=== PATIENT | female | born 1980 | race Caucasian/White ===

== ENCOUNTER 2025-07-30 13:17 | Emergency (ER) | payer SELFPAY ==
[2025-07-30 13:18] VITALS: BMI 56.5
[2025-07-30 13:49] VITALS: BP 206/139; BP 232/135; PULSE 100; RESP 18; TEMP 36.9; O2SAT 100
--- NOTE | 2025-07-30 14:24 | EDNOTE_ITS ---
<Statement entered by Mitra Malone MD - 07/30/25 17:38> As co-signing physician, I was present and available for consult prn. I concur with the plan and care as documented by the midlevel provider. ED Extremity Problem RME/HPI General Chief complaint: Extremity Problem,Nontraumatic Stated complaint: RLE SWELLING X2 WEEKS Time Seen by Provider: 07/30/25 13:34 Arrival date/time: 07/30/25 13:17 44-year-old female patient with no past medical history except for morbid obesity, came in for evaluation regarding redness to the lateral aspect of the lower leg. Patient told me that he got bitten by a spider, that was 2 weeks ago, he just ignored it until he noticed to become red. There is no necrosis noted. Patient denies any lower leg pain or tenderness. Also complained of mild swelling. Patient is currently not taking any blood pressure medication, has been monitoring her blood pressure, told me that every time he comes to the emergency room blood pressure usually is elevated. She told me that was checked by her PCP and her blood pressure was normal few months ago. Denies any chest pain denies any shortness of breath denies any other complaints. Related Data Previous Rx's ?Medication ?Instructions ?Recorded clindamycin HCl 300 mg capsule 300 mg PO TID #30 caps 07/30/25 (Cleocin HCl) ibuprofen 800 mg tablet 800 mg PO TID PRN pain #30 t abs 07/30/25 Allergies Allergy/AdvReac Type Severity Reaction Status Date / Time No Known Allergies Allergy Verified 07/30/25 13:20 Review of Systems Review of Systems Narrative Review of Systems: Review of system reviewed and within normal limits except mentioned in HPI ED Exam Narrative Physical exam: VITAL SIGNS: Reviewed. GENERAL APPEARANCE: Alert and interactive, follows commands, no acute distress, HEAD AND FACE: Non-traumatic. ENT: PERRL, pink conjunctivitis, eyelid no trauma, Mucous membrane moist. NECK: Supple, nontender, no nuchal rigidity. CHEST: No tenderness, no crepitus, no paradoxical movement, no retractions. LUNGS: Clear, well ventilated, symmetric, no rales, no wheezing, no ronchi, no stridor, good breath sounds bilaterally. HEART: Regular rate, regular rhythm, no murmur, no gallops. ABDOMEN: Soft, positive bowel sounds, nondistended, no guarding, nontender, no rebound, no masses, RECTAL: Deferred. GENITAL: Deferred. NEUROLOGICAL: Gross motor function intact sensory function intact, Appropriate for age. MUSCULOSKELETAL: low back nontender, full range of motion. EXTREMITIES: + Redness noted to the lateral aspect of the right lower leg, no necrosis noted nontender, full range of motion. Mild swelling noted, distal neurovascular status intact SKIN: Color pink, dry, no rash, no lacerations, no abrasions, no contusions. LYMPHATICS: Deferred. Course Quality Measures none Orders Category Date Time Status Furosemide [Lasix] Med 07/30/25 14:23 Discontinued 20 mg PO X1 ONE cefTRIAXone [Rocephin] 1,000 mg Med 07/30/25 14:24 Discontinued Lidocaine 1% Pf Vial 5ml [Xylocaine 1% Pf 5 ml] 2.1 ml IM X1 cloNIDine HCL [Catapres] Med 07/30/25 14:23 Discontinued 0.2 mg PO X1 ONE Vital Signs Vital signs: Vital Signs Temperature 98.4 F 07/30/25 13:49 Pulse Rate 100 07/30/25 13:49 Respiratory Rate 18 07/30/25 13:49 Blood Pressure 206/139 H 07/30/25 13:49 Pulse Oximetry (%) 100 07/30/25 13:49 Oxygen Delivery Method Room Air 07/30/25 13:49 Extremity Problem MDM Narrative MDM Narrative:: 44-year-old female patient with no past medical history except for morbid obesity, came in for evaluation regarding redness to the lateral aspect of the lower leg. Patient told me that he got bitten by a spider, that was 2 weeks ago, he just ignored it until he noticed to become red. There is no necrosis noted. Patient denies any lower leg pain or tenderness. Also complained of mild swelling. Patient is currently not taking any blood pressure medication, has been monitoring her blood pressure, told me that every time he comes to the emergency room blood pressure usually is elevated. She told me that was checked by her PCP and her blood pressure was normal few months ago. Denies any chest pain denies any shortness of breath denies any other complaints. Imaging is not needed at this time patient's leg showed mild cellulitis, I did not notice any sign of DVT or abscess formation. Patient was offered a prescription of blood pressure medication however patient told me that she never had a blood pressure problem and will follow-up with her PCP in few days and mention about blood pressure issues. Patient was given ceftriaxone IM, clonidine, and Lasix. Patient eloped from the emergency room Patient data External records reviewed:: None Clinical information provided by:: patient Social determinants that could affect healthcare access:: none Patient has the following chronic illnesses:: Morbid obesity How is presenting disease/condition affected by chronic disease/condition?: exacerbated by Evaluation data The following diagnostics were reviewed and interpreted by me:: other (specify) (None) Lab and/or radiology exams considered but not ordered:: None Interpretation Summary: None Medications / Prescriptions Medications or Prescriptions considered but not ordered:: None Medication administrations:: Medication Administration History Discontinued Medications Clonidine (Clonidine Hcl 0.1 Mg Tablet) 0.2 mg PO X1 ONE Stop: 07/30/25 14:24 Last Admin: 07/30/25 14:45 Dose: 0.2 mg Documented By: Ceftriaxone Sodium 1,000 mg/ (Lidocaine HCl 2.1 ml) 0 mg IM X1 ONE Stop: 07/30/25 14:25 Last Admin: 07/30/25 14:48 Dose: 1,000 mg Documented By: Furosemide (Furosemide 40 Mg Tablet) 20 mg PO X1 ONE Stop: 07/30/25 14:24 Last Admin: 07/30/25 14:45 Dose: 20 mg Documented By: Lasix, ceftriaxone and clonidine Consultations Consultation(s) initiated? (list below): No Diagnosis Extremity Problem Differential Diagnosis: cellulitis and lower extremity edema Most likely diagnosis given after review of the tests above:: Leg cellulitis, elevated blood pressure with no diagnosis of hypertension Admission Indicated Admission indicated?: not indicated Admission Request Was there a request for admission?: No Disposition Plan Disposition Plan: other (specify) (Elopement) Discharge Plan Plan Patient Disposition: Elopement Discharge Disposition comment: Stable Prescriptions/Referrals Prescriptions/Med Rec: New clindamycin HCl [Cleocin HCl] 300 mg capsule 300 mg PO TID Qty: 30 0RF ibuprofen 800 mg tablet 800 mg PO TID PRN (Reason: pain) Qty: 30 0RF Problem List Clinical Impression: Cellulitis of leg Patient/Caregiver Discharge Instructions Discharge Activity: activity as tolerated Education Materials: ED Cellulitis Additional Instructions: Thank you for the opportunity for serving you today. You are stable for discharged . You are advised to: Follow-up with your PCP in 1 to 2 days, and recheck your blood pressure. Return to ED for worsening of symptoms Increase oral fluids Take medication as prescribed Print Language: [place] Stand Alone Forms: Patient Portal Info Letter CORINA/NILS Supervising Physician JOSÉ MANUEL Supervising Physician: MD Kira
[2025-07-30 14:45] VITALS: BP 206/139; PULSE 100
--- NOTE | 2025-07-30 16:54 | PC.NURSE ---
NAx3 1548, 1602, 1619, patient eloped ED
== END 2025-07-30 16:55 | disposition left against medical advice (07) ==
LOC: SERX 17:11
PROVIDERS: Emergency Provider Emergency Medicine
DX: L03.115 Cellulitis of right lower limb (principal)
CPT/HCPCS: 96372; 99282; J0696; J3490; A9270